=== PATIENT | female | born 1995 | race Caucasian/White ===

== ENCOUNTER 2017-01-25 00:03 | Emergency (ER) | payer OTHER ==
--- NOTE | ~2017-01-25 | CT4 ---
[facility]. [facility] A Service of [facility] / [facility] RADIOLOGY TEXT RESULTS PATIENT: MARCEL FINN LOCATION: SED : 93 UNIT #: [id number] AGE: [address]: Rodney Richard MD SEX: F ORDER DR: [id number] [address] [address] [id number] E MR#: [id number] Acc #: [id number] NAME: MARCEL FINN : 1995 SEX: F STUDY DATE/TIME: 01/25/2017 1:41 UNIT: SED ROOM: STUDY DESCRIPTION: CT Abd and Pelv Wo Cont Attending Physician: Rodney Richard M.D. Ordering Physician: Lizette Lindquist Pa-C Primary Care Physician: Primary Care Physician No MEDICAL IMAGING REPORT This report is preliminary unless electronic signature is present. EXAM CT abdomen and pelvis without contrast HISTORY Right-sided back and abdominal pain, nausea and vomiting, onset tonight. COMPARISON CT abdomen and pelvis 10/26/[address] exam was performed with one or more of the following radiation dose reduction techniques: automatic exposure control, adjustment of mA and/or kV according to patient size, and iterative reconstruction. FINDINGS Axial images performed through the abdomen and pelvis without contrast. Multiplanar reconstructed images reviewed at a workstation. ABDOMEN: Moderate right-sided hydronephrosis and hydroureter with two small stone fragments of the distal right ureter, the largest measuring about 5 mm. I suspect there is a third stone fragment within the distal right ureter proximal to the UVJ. There is a small nonobstructing left renal stone. The liver, spleen, gallbladder, pancreas and adrenal glands are unremarkable. The GI tract to include the appendix unremarkable. Aorta and IVC unremarkable. PELVIS: Bladder unremarkable. The uterus is anteverted. The osseous structures are unremarkable. Of note is a significant increase in body habitus in this patient from the 2009 study. [facility] A Service of [facility] / [facility] RADIOLOGY TEXT RESULTS PATIENT: MARCEL FINN LOCATION: SED : 93 UNIT #: [id number] AGE: [address]: Rodney Richard MD SEX: F ORDER DR: Multiple distal right UVJ stones, the largest measuring just over 5 mm. There is a moderate right-sided hydronephrosis and hydroureter. Dictated by... Seth Sheets M.D. THIS IS AN ELECTRONICALLY VERIFIED REPORT Seth Sheets M.D. at 01/25/2017 10:04 PM ANNE/josé antonio TD: 01/25/2017 03:25 JOB #: [id number] MEDICAL IMAGING REPORT Page 1 of 1
[~2017-01-25 00:03] MED LIST: BACTRIM DS TABL1 TA1 PO; BCP PO; BENADRYL25 M3 PO; BIRTH CONTROL PILL PO; DOXYCYCLINE HY100 M1 PO; FAMOTIDINE PO; IBUPROFEN PO; KEFLEX500 M1 PO; MOTRIN600 M1 PO; NO MEDICATIONS; OMNICEF PO; PHENERGAN DM PO; PREDNISONE PO; PRENATAL1 TA1 PO; ZANAFLEX4 M1 PO; ZITHROMAX1 G/PKT PO
[2017-01-25] MEDS ORDERED: NO MEDICATIONS (00:20)
[2017-01-25 00:58] LABS: BASOPHIL% 0.3 % (0-2.5); EOSINOPHIL# 0.1 X10e3 (0-0.7); HEMATOCRIT 35.6 % (35.0-45.0); HEMOGLOBIN 11.8 gm/dL (12.0-16.0); LYMPHOCYTE# 2.4 X10e3 (1.0-3.5); LYMPHOCYTE% 33.4 % (17.0-45.0); MEAN CELL VOLUME 78.3 FL (83-96); MEAN CORPUSCULAR HEMOGLOBIN 26.1 PG (28-34); MEAN CORPUSCULAR HGB CONC 33.3 g/dL (30-36); MONOCYTE# 0.5 X10e3 (0-1.0); MONOCYTE% 7.3 % (3.0-12.0); NEUTROPHIL# 4.1 X10e3 (1.5-7.1); PLATELET COUNT 273 X10e3 (140-420); RED BLOOD COUNT 4.55 X10e (3.90-5.30); RED CELL DISTRIBUTION WIDTH 14.8 % (11.0-15.5); WHITE BLOOD COUNT 7.1 X10e3 (4.0-10.5)
[2017-01-25 00:59] LABS: DIFF IND NO
[2017-01-25 01:31] LABS: BILIRUBIN, DIRECT 0.1 mg/dL (0.0-0.2); BILIRUBIN,INDIRECT 0.3 mg/dL (0.0-0.9); BILIRUBIN,TOTAL 0.4 mg/dL (0.2-2.0); BUN/CREATININE RATIO 17.5; CALCIUM SERUM 8.3 mg/dL (8.4-10.2); CREATININE SERUM 0.8 mg/dL (0.6-1.4); POTASSIUM 3.4 mmol/L (3.5-5.1); PROTEIN TOTAL SERUM 7.4 g/dL (6.0-8.3)
[2017-01-25 02:47] LABS: MICRO INDICATED? NO
== END 2017-01-25 03:01 | disposition home or self-care (01) ==
LOC: SED 00:03
PROVIDERS: Physician Assistant
DX: N13.2 Hydronephrosis with renal and ureteral calculous obstruction (principal)
CPT/HCPCS: 36415; 74176; 80048; 80076; 81003; 84703; 85025; 96361; 96374; 96375; 99284; J1885; J2405

== ENCOUNTER 2017-04-27 06:36 | Emergency (ER) | payer OTHER ==
[~2017-04-27] VITALS: Ht 157.5 cm; Wt 81.6 kg
--- NOTE | ~2017-04-27 | CT4 ---
[facility] A Service of [facility] & [facility] RADIOLOGY TEXT RESULTS PATIENT: MARCEL FINN LOCATION: SED : [birth year] UNIT #: [id number] AGE: [address]: Derek Almeida MD SEX: F ORDER DR: [id number] [address] [address] [id number] E MR#: [id number] Acc #: [id number] NAME: MARCEL FINN : 1995 SEX: F STUDY DATE/TIME: 04/27/2017 7:48 UNIT: SED ROOM: STUDY DESCRIPTION: CT Abd and Pelv Wo Cont Attending Physician: Derek Almeida M.D. Ordering Physician: Ben Green M.D. Primary Care Physician: No Primary Care Physician MEDICAL IMAGING REPORT This report is preliminary unless electronic signature is present. EXAM CT abdomen and pelvis without contrast. INDICATIONS Low abdominal pain radiating to left flank since 2:00 a.m. History of kidney stones. COMPARISON STUDY 01/25/17. TECHNIQUE Axial 3 mm images were obtained through the abdomen and pelvis without IV or oral contrast. Sagittal and coronal reconstructions were generated. This CT exam was performed with one or more of the following radiation dose reduction techniques: automatic exposure control, adjustment of mA and/or kV according to patient size, and iterative reconstruction. FINDINGS The lung bases are clear. The liver, gallbladder, spleen, pancreas, adrenal glands, and right kidney are normal. The left kidney shows mild hydronephrosis and left ureter is dilated all the way down to the bladder, where there is a 5 mm stone lodged in the ureterovesical junction. The aorta is normal in size and there is no adenopathy. The bowel, including the appendix, is normal. The uterus is normal. The left ovary has a cyst measuring 3 cm in diameter, which should be physiologic in a patient of this age. The bladder is normal, otherwise. The bones are unremarkable. IMPRESSION 1. 5 mm stone lodged in the left ureterovesical junction. It is near the inside of the bladder wall and looks like it is close to passing. [facility] A Service of [facility] & [facility] RADIOLOGY TEXT RESULTS PATIENT: MARCEL FINN LOCATION: SED : 93 UNIT #: [id number] AGE: [address]: Derek Almeida MD SEX: F ORDER DR: This causes moderate hydronephrosis. 2. 3 cm left ovarian cyst, which should be physiologic in a patient of this age. Dictated by... Derek Pang M.D. THIS IS AN ELECTRONICALLY VERIFIED REPORT Derek Pang M.D. at 04/27/2017 12:24 PM TRICIA/oni TD: 04/27/2017 11:27 JOB #: [id number] MEDICAL IMAGING REPORT Page 1 of 1
[2017-04-27 07:20] LABS: BASOPHIL% 0.4 % (0-2.5); EOSINOPHIL% 0.7 % (0.0-7.0); HEMATOCRIT 35.8 % (35.0-45.0); HEMOGLOBIN 12.3 gm/dL (12.0-16.0); LYMPHOCYTE# 1.9 X10e3 (1.0-3.5); LYMPHOCYTE% 30.9 % (17.0-45.0); MEAN CELL VOLUME 81.5 FL (83-96); MEAN CORPUSCULAR HGB CONC 34.4 g/dL (30-36); MONOCYTE# 0.4 X10e3 (0-1.0); MONOCYTE% 6.6 % (3.0-12.0); NEUTROPHIL# 3.7 X10e3 (1.5-7.1); NEUTROPHIL% 61.4 % (40-75); PLATELET COUNT 272 X10e3 (140-420); RED CELL DISTRIBUTION WIDTH 13.5 % (11.0-15.5); WHITE BLOOD COUNT 6.1 X10e3 (4.0-10.5)
[2017-04-27 07:26] LABS: DIFF IND NO
[2017-04-27 07:28] LABS: URINE APPEARANCE CLEAR; URINE BILIRUBIN NEG (NEG); URINE BLOOD 3+ (NEG); URINE COLOR YELLOW; URINE GLUCOSE NEG (NORM); URINE KETONE NEG (NEG); URINE LEUKOCYTE ESTERASE TRACE (NEG); URINE NITRATE NEG (NEG); URINE PROTEIN NEG (NEG); URINE SOURCE CLEAN CATCH
[2017-04-27 07:31] LABS: MICRO INDICATED? YES
[2017-04-27 07:39] LABS: BILIRUBIN,TOTAL 0.6 mg/dL (0.2-2.0); BUN/CREATININE RATIO 18.75; CREATININE SERUM 0.8 mg/dL (0.6-1.4); GLOM FILT RATE Estimated 103.3 mL/min (>60)
[2017-04-27 07:49] LABS: CULTURE INDICATED? NO; URINE BACTERIA NEG (NEG); URINE SQUAMOUS EPITHELIAL CELL FEW /[HPF]; URINE WBC 0-2 /[HPF] (0-5)
[2017-04-27] MEDS ORDERED: MACROBID100 M1 PO (08:34)
[2017-04-27] MEDS ORDERED: ZOFRAN ODT4 MG PO (08:34)
[2017-04-27] MEDS ORDERED: LORCET PLUS 7.1 EACH PO (08:35)
== END 2017-04-27 08:54 | disposition home or self-care (01) ==
LOC: SED 06:36
DX: N13.2 Hydronephrosis with renal and ureteral calculous obstruction (principal); N83.201 Unspecified ovarian cyst, right side; Z87.442 Personal history of urinary calculi; Z79.899 Other long term (current) drug therapy
CPT/HCPCS: 36415; 74176; 80053; 81003; 84703; 85025; 96374; 96375; 99284; J2270; J2405